=== PATIENT | female | born 1990 | race Caucasian/White ===

== ENCOUNTER 2020-08-20 11:10 | Emergency (ER) | payer OTHER, SELFPAY ==
[2020-08-20] VITALS (7 sets, daily range): BP systolic 103–143; BP diastolic 69–94; PULSE 84–157; RESP 20; TEMP 36.6; O2SAT 98–100
--- NOTE | ~2020-08-20 | US_ITS ---
US OB <=14 wk fetus w TV DATE: 08/20/2020 14:09 INDICATION: Vaginal bleeding with clots TECHNIQUE: Real-time imaging and Doppler analysis COMPARISON: None FINDINGS: Uterus measures 14.7 cm height, 5.9 cm AP dimension, 6.7 cm transverse dimension. Heterogeneous central endometrial echo complex measures up to 2.1 cm AP dimension. No intrauterine ge stational sac is identified. Right ovary 4.5 x 3.1 x 2.9 cm with complex cyst measuring 1.4 x 1.1 x 0.9 cm. Left ovary measures 3.6 x 1.6 x 1.5 cm. There is vascular flow to both kidneys. There is trace free fluid in the right adnexal area. IMPRESSION: Prominent heterogeneous central endometrial echo complex measures up to 2.1 cm, without i dentifiable gestational sac Reviewed, dictated and finalized at [facility]. Reviewed, dictated and finalized at [facility]. IMPRESSION: Prominent heterogeneous central endometrial echo complex measures u p to 2.1 cm, without identifiable gestational sac
--- NOTE | 2020-08-20 11:18 | ED.FEMALEGU ---
HPI - Female Genitourinary General Chief complaint: Vaginal Bleeding Stated complaint: possible miscarriage Time Seen by Provider: 08/20/20 11:16 Source: patient Mode of arrival: ambulatory Limitations: no limitations History of Present Illness HPI Narrative: This is a 29 year old , about 9 weeks by LMP that presents to the ER for vaginal bleeding x 3 days. Reports she had a positive test 4 days ago. Started with light bleeding the next day. Reports today she started having more heavy bleeding with clots. She recently moved, so does not have an CLERK MANAGER in the area. Denies fever, dysuria or pelvic cramping. Related Data Home Medications Medication Instructions Recorded Confirmed No Home Medications 08/20/20 08/20/20 Allergies Allergy/AdvReac Type Severity Reaction Status Date / Time No Known Allergies Allergy Verified 08/20/20 11:54 Review of Systems Review of Systems: Narrative: CONSTITUTIONAL: Denies fever GASTROINTESTINAL: Denies abdominal pain, nausea, vomiting GENITOURINARY: Denies dysuria All systems reviewed & are unremarkable except as noted in HPI and below PMFSH Past Medical History Medical History (Updated 08/20/20 @ 14:22 by Shana Bravo PA-C) No active medical problems Social History Social History (Updated 08/20/20 @ 11:33 by Shana Bravo PA-C) Substance use: never Gender identity (if verbalized by the patient): Female Exam Narrative: Exam Narrative: GENERAL: Well-appearing, well-nourished, and in no acute distress. HEAD: Normocephalic, atraumatic. EYES: EOMI. CHEST: Clear to auscultation. No respiratory distress. No wheezes rales or rhonchi HEART: Regular rate and rhythm. No murmur heard. Normal peripheral pulses. ABDOMEN: Soft, nontender, nondistended, normal active bowel sounds. EXTREMITIES: Normal range of motion. No edema. SKIN: Warm, dry, no rash. NEURO: No focal deficits. Alert and oriented x3. PSYCH: Normal mood and affect PELVIC: Large amount of blood with large blood clots present in the vaginal vault. Once cleared, blood is steadily oozing from the cervix Course Consultations Consultation #1: Spoke with Dr. Banuelos about patient and workup who will follow up in clinic. Would like repeat an hCG in 48 hours. Date: 08/20/20 Time: 14:36 Vital Signs Vital signs: Vital Signs Temperature 97.8 F 08/20/20 11:42 Pulse Rate 119 H 08/20/20 11:42 Respiratory Rate 20 08/20/20 11:42 Blood Pressure 143/89 H 08/20/20 11:42 Pulse Oximetry 100 08/20/20 11:42 Temperature 97.8 F 08/20/20 11:42 Pulse Rate 92 08/20/20 13:31 Respiratory Rate 20 08/20/20 13:31 Blood Pressure 103/77 08/20/20 13:31 Pulse Oximetry 100 08/20/20 13:31 MDM - Female Genitourinary MDM Narrative Medical decision making narrative: Patient presents to the emergency department for vaginal bleeding with recent positive test. She is afebrile and nontoxic-appearing. Orthostatic on arrival, hydrated with IV fluids with improvement. Her hemoglobin is 13. Patient does have bleeding on exam with large blood clots. Her quantitative beta-hCG is 11,323. She is O negative. Given dose of RhoGam in the ED. Obstetric ultrasound shows prominent heterogenous central endometrial echocomplex measuring up to 2.1 cm, no identifiable gestational sac. Right ovary has a small cyst. Normal vascular flow to the ovaries. Patient and family updated on case findings. Spoke with Dr. Banuelos about patient and workup who will follow up in clinic. Would like repeat an hCG in 48 hours. Patient is stable and felt appropriate for further outpatient evaluation. She was given warnings to return to the ER Lab Data Attestation: I reviewed the patient's lab results. Result diagrams: 08/20/20 11:40 Labs: Lab Results 08/20/20 08/20/20 08/20/20 Range/Units 11:40 11:40 11:40 WBC 7.6 (4.5-10.0) K/mm3 RBC 4.56 (4.2-5.4) M/mm3 Hgb 13.0 (12.0-15.0) g/d
[2020-08-20 11:57] LABS: Basophils Percent Auto 0.5 % (0.2-1.2); Eosinophils Absolute Auto 0.1 K/mm3 (0-0.3); Eosinophils Percent Auto 0.9 % (0-4.4); Hematocrit 39.2 % (37.0-47.0); Immature Granulocyte Absolute 0.02 K/mm3 (0.00-0.031); Immature Granulocyte Percent A 0.3 % (0-0.5); Lymphocytes Absolute Auto 1.43 K/mm3 (0.9-3.2); Lymphocytes Percent Auto 18.7 % (18.3-44.2); Mean Corpuscular HGB Conc 33.2 g/dl (32-36); Mean Corpuscular Hemoglobin 28.5 pg (26-34); Mean Platelet Volume 9.5 fl (7.4-10.4); Monocytes Absolute Auto 0.4 K/mm3 (0.1-0.6); Monocytes Percent Auto 5.1 % (2.6-8.5); Neutrophils Absolute Auto 5.7 K/mm3 (1.3-6.7); Neutrophils Percent Auto 74.5 % (45.5-73.1); Platelet Count Result 270 k/mm3 (150-375); Red Blood Count 4.56 M/mm3 (4.2-5.4); Red Cell Distribution Width 12.4 % (11.5-14.5); White Blood Count 7.6 K/mm3 (4.5-10.0)
[2020-08-20 12:08] LABS: INR 1.1; Prothrombin Time 14.6 Seconds (11.1-14.7)
[2020-08-20 12:09] LABS: Partial Thromboplastin Time 36.7 SECONDS (22.3-36.8)
[2020-08-20] MEDS: SODIUM CHLORIDE 0.9% IV 1,000 ML 999 ML IV CONT (12:19)
[2020-08-20] MEDS: RHO(D) IMMUNE GLOBULIN 300 MCG/2 ML SYRINGE IM (13:30)
[2020-08-20] MEDS: METHYLERGONOVINE MALEATE 0.2 MG/ML VIAL IM (14:45)
== END 2020-08-20 15:29 | disposition home or self-care (01) ==
PROVIDERS: Physician Assistant; Emergency Provider Emergency Medicine
DX: N93.9 Abnormal uterine and vaginal bleeding, unspecified (principal); O20.0 Threatened abortion
CPT/HCPCS: 36415; 76801; 76817; 81025; 84702; 85025; 85461; 85610; 85730; 90384; 96360; 96372; 99284; J2210; J2790; J7030

== ENCOUNTER 2020-08-23 14:54 | Outpatient (CLI) | payer OTHER, SELFPAY | END 2020-08-23 14:55 | disposition home or self-care (01) | LOC: ANHLAB 15:14 | PROVIDERS: Visit Provider Physician Assistant | DX: O20.0 Threatened abortion (principal); Z3A.09 9 weeks gestation of pregnancy | CPT/HCPCS: 36415; 84702 ==

== ENCOUNTER 2020-09-29 16:10 | Outpatient (RCR) | payer OTHER, SELFPAY ==
[2020-09-13 16:32] LABS: Beta HCG Quantitative 6.51 mIU/ML
[2020-09-29 17:09] LABS: Beta HCG Quantitative < 2.39 mIU/ML
== END 2020-12-12 23:59 | disposition home or self-care (01) ==
LOC: ANHLAB 16:10
PROVIDERS: Visit Provider Obstetrics & Gynecology
DX: O02.1 Missed abortion (principal); Z3A.00 Weeks of gestation of pregnancy not specified
CPT/HCPCS: 36415; 84702

== ENCOUNTER → 2021-06-27 09:09 | Outpatient (CLI) | payer BC, SELFPAY ==
[2021-06-27 11:58] LABS: SARS-CoV-2 RNA PCR Negative
== END ==
PROVIDERS: Visit Provider Obstetrics & Gynecology
DX: Z01.812 Encounter for preprocedural laboratory examination (principal); Z20.822 Contact with and (suspected) exposure to COVID-19
CPT/HCPCS: C9803; U0003; U0005

== ENCOUNTER 2021-06-29 01:40 | Day surgery (SDC) | payer BC, SELFPAY ==
[2021-06-27 08:40] VITALS: BMI 31.3
--- NOTE | 2021-06-27 08:48 | PC.NURSE ---
Report to the Outpatient Waiting Room, entrance under the green pavilion located off [facility], at time 0600 on date 06/29/21. OR Time: 0730. - You and your visitor will be asked a series of questions to screen for COVID 19 for your protection. - A mask is required within the hospital. One visitor will be allowed to accompany the patient into the hospital. Patients visitor will be instructed to remain with patient at all times or leave the building. We will allow the visitor to come back to the postoperative area when patient is ready. Preoperative COVID Testing Requirements: COVID TEST 06/27 AT 0915 No COVID Test needed if: (proof is required; if not received patient will have Rapid Test prior to entry) - Patient has received COVID Vaccine at least 14 days prior to procedure date or - Patient has positive COVID test result within last 90 days of surgery date. COVID Test needed if above criteria is not met If not COVID vaccinated a COVID test must be conducted within 72 hours of surgery and patient is asked to isolate self from time of testing until procedure. You will go to the [facility] for your COVID testing. The [facility] site is located at the corner of [address] [facility]. You will only be called if COVID results are positive and your surgeon may reschedule your elective surgery date. Patients may have clear liquids (water, carbonated beverages, clear teas, apple juice) until 3 hours prior to surgery with a maximum of 20 ounces. - No food from midnight until time of surgery Take the following medications with a SIP of water the morning of surgery: NONE Medications to discontinue per physician: N/A Date to take last dose: N/A Please no make-up, nail french, hairspray, perfume, deodorant, or body powder the day of surgery. No jewelry (including any body piercings) or valuables the day of surgery, leave them at home. Please take a shower or bath the night before, or the morning of, surgery with an antibacterial soap. Wear comfortable, loose fitting clothing. - Jewelry must be removed prior to entering the operating room. Rings and piercings that are not removed may be cut off. - The hospital will not accept responsibility for valuables. - Please leave all valuables, including medications, at home the day of surgery. If you are going home after surgery, a licensed subway train driver must drive you home. - NO public transportation without another adult. - We recommend that an adult stay with you for 24 hours following discharge. - We also recommend that you do not drive, make important decision, drink alcoholic beverages, or take any drugs that were not prescribed by your health care provider for at least 24 hours after your discharge time. Follow any additional instructions given to you from your surgeon. Telephone instructions given to LEONCIO GRAFF and asked if any additional questions and then verbalized understanding. Patient advised to call surgeon office or pre surgery nurse liaison [phone] if any additional questions.
[2021-06-29] MEDS: ACETAMINOPHEN 500 MG TABLET 1000 MG PO (06:36)
[2021-06-29] MEDS: LACTATED RINGERS 1,000 ML 30 ML IV CONT ×3 (06:45→09:25)
--- NOTE | 2021-06-29 07:01 | P.PNAN_ITS ---
Anes - Initial Pre Proc Eval Procedure: Operation Date: 06/29/21 07:30 Proposed Procedures p Suction Dilation and Curettage - Laura Shanks MD Date/Time: 06/29/21 07:01 Surgeon: Laura Shanks MD Pre Op Diagnosis: Missed Ab Patient Data Age: 30 Gender: F Height: 1.7 m Weight: 90.72 kg Allergies Allergy/AdvReac Type Severity Reaction Status Date / Time No Known Allergies Allergy Verified 06/28/21 11:33 Home Medications Medication Instructions Recorded Confirmed Type No Home Medications 06/27/21 06/27/21 History Patient hx anesthesia problems: none Family hx anesthesia problems: none Results Review: All pre-operative results and documents have been reviewed as part of the pre-operative evaluation. 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 Gender identity (if verbalized by the patient): Female Sexual Orientation (if Verbalized by the Patient): Straight or Heterosexual Spiritual care concerns: No Agree to blood products: No Anes - Eval Final PreProcedure Day of Procedure 06/29/21 07:01 Patient weight: obese Heart: regular rate and rhythm Lungs: clear to auscultation Airway: Mallampati scale class II Neurological: alert and oriented Last oral intake: >/= 8 hours ASA classification: II Emergent: no Anesthetic plan: proceed Anesthesia type and monitoring: general GIVS and standard monitoring Results Review: All pre-operative results and documents have been reviewed as part of the pre-operative evaluation. Informed Consent: The patient's anesthetic plan and its attendant risks and benefits were discussed with the patient/family/POA. Questions were solicited and answers provided to the satisfaction of the patient/family/POA.
[2021-06-29 07:04] LABS: Hematocrit 37.7 % (37.0-47.0); Hemoglobin 12.6 g/dL (12.0-15.0); Mean Corpuscular HGB Conc 33.4 g/dl (32-36); Mean Corpuscular Hemoglobin 28.4 pg (26-34); Mean Corpuscular Volume 85.1 fl (80-100); Mean Platelet Volume 9.2 fl (7.4-10.4); Platelet Count Result 247 k/mm3 (150-375); Red Blood Count 4.43 M/mm3 (4.2-5.4); Red Cell Distribution Width 15.1 % (11.5-14.5); White Blood Count 5.7 K/mm3 (4.5-10.0)
--- NOTE | 2021-06-29 07:08 | PM.IMHP ---
H&P: HPI History of Present Illness Date/Time: 06/29/21 07:01 Fany is a 30yo who is presenting for suction D&C. She was diagnosed with a missed on 06/26/21. She had presented for her anatomy US and the fetus was measuring 14wks without heart tones. She denies pain or bleeding. She was counseled on options and elected for suction D&C rather than misoprostol induction of labor. Her recently had a vasectomy; they do not plan to try for reversal. Chief Complaint: missed Review of Systems Constitutional: Constitutional: Denies fever(s) Cardiovascular: Cardiovascular: Denies chest pain, Denies palpitations and Denies dyspnea Gastrointestinal: Gastrointestinal: Denies nausea and Denies vomiting Genitourinary: Genitourinary: Denies abnormal vaginal bleeding, Denies pelvic pain and Denies vaginal discharge Neurologic: Denies dizziness and Denies headache(s) [facility] Past Medical History Medical History Miscarriage (~08/2020) No active medical problems Surgical History Surgical History S/P compartment syndrome decompression left leg Family History Family History Mother Myelofibrosis Father Non Hodgkin's lymphoma Social History Social History Smoking status: Never smoker Alcohol intake: never Substance use: never Substance use type: does not use Living arrangements: with family Additional living arrangements comments: spouse 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 Gender identity (if verbalized by the patient): Female Sexual Orientation (if Verbalized by the Patient): Straight or Heterosexual Spiritual care concerns: No Agree to blood products: No Meds Home Medications and Allergies Home Medications Medication Instructions Recorded Confirmed Type No Home Medications 06/27/21 06/27/21 History Allergies Allergy/AdvReac Type Severity Reaction Status Date / Time No Known Allergies Allergy Verified 06/28/21 11:33 Exam Const: General: cooperative, healthy appearing, comfortable and no acute distress Resp: Effort & Inspection: normal respiratory effort Cardio: Rate: regular rate GI: Inspection: non-distended GI Palp: No abdominal tenderness and Yes Soft to palpation : Other: deferred to OR Neuro: General: patient oriented x3 Psych: Appearance: grossly normal Affect: Sad affect present Attitude: cooperative Assessment and Plan Assessment and plan (1) Missed : Code(s): O02.1 - Missed Status: Acute Additional Plan - Pt was counseled on her options of suction D&C vs misoprostol induction of labor; she desires to proceed with suction dilation and curettage - Risks and benefits explained in detail - Doxycycline 200mg PO once post-op - Pt is rh negative and will need rhogam after procedure
--- NOTE | 2021-06-29 07:08 | WPDHPUPDATE1 ---
History and Physical Update Update Date/Time: 06/29/21 07:08 History and Physical has been reviewed, including an updated exam of the patient. There are NO changes in the patient's condition. Risks, benefits, and alternatives have been discussed and questions answered. Patient agrees to proceed with procedure.
[2021-06-29] MEDS: miSOPROStol 200 MCG TABLET 800 MCG VAGINAL (07:41)
[2021-06-29 08:00] VITALS: BP 142/62; PULSE 83; RESP 16; TEMP 36.6; O2SAT 100
[2021-06-29 08:30] VITALS: BP 112/69; PULSE 81; RESP 12; TEMP 36.2; O2SAT 100
[2021-06-29] MEDS: RHO(D) IMMUNE GLOBULIN 300 MCG/2 ML SYRINGE IM (08:45)
[2021-06-29 09:00] VITALS: BP 74/37; PULSE 58; RESP 16; O2SAT 100
--- NOTE | 2021-06-29 09:15 | W.PM.PROC2 ---
Procedure Note - Detailed Date of Procedure 06/29/21 Pre-op Diagnosis Missed Ab Post-op Diagnosis Same Procedure Performed suction dilation and curettage performed under ultrasound guidance Surgeon Laura Shanks MD Anesthesia MAC Indications Fany is a 30yo who is presenting for suction D&C. She was diagnosed with a missed on 06/26/21. She had presented for her anatomy US and the fetus was measuring 14wks without heart tones. She denies pain or bleeding. She was counseled on options and elected for suction D&C rather than misoprostol induction of labor. Her recently had a vasectomy; they do not plan to try for reversal. Findings 12wk size uterus; normal cervix closed. All products of conception removed at end of case with good hemostasis. PPH noted with 1,500cc of blood loss. Misoprostol 800mcg placed rectally at end of case. Description of Procedure Fany was taken to the operating room where she was placed under MAC sedation. Once comfortable she was prepped and draped in the usual sterile fashion the dorsal lithotomy position with her legs in low John stirrups. A time-out was performed. A bivalve speculum was placed within the vagina and the cervix was easily identified. The anterior lip of the cervix was grasped with a single-tooth tenaculum. The cervix was then serially dilated up to 12F dilation. A 14 was attempted to be used however the tenaculum site tore through the cervix. The tenaculum was replaced and decision was made to proceed with using a 12 Portuguese suction curettage. Two passes were made using the 12 and a small amount products were removed and murky fluid was then noted. The ultrasound was used and the fetus was still noted to be in utero. Using a large sharp curettage, some products of conception were removed. However most remained in utero. Therefore decision was made to use a ring forceps and portions of the fetus were removed. Ultrasound was once again performed and was noted that the calvarium was still in utero and was unable to be grasped by the ring forceps under ultrasound guidance.The tenaculum was then placed on the posterior lip of the cervix for better grasp, and the cervix was then dilated to 14. Using the 14, the products of conception were then removed and noted to be in the cervix. They were teased out of the cervix using ring forceps. Ultrasound was once performed and a small amount of products of conception were still in the uterus. Two more passes using the 14 curettage were performed and the remaining products of conception were removed. The endometrial stripe on ultrasound was found to be very thin. The cervix was clamping down but some bleeding was still noted. Misoprostol 800 mcg was placed rectally. All instruments were removed from the vagina and a bimanual massage was performed with good uterine tone. The cervix was once again examined and found to be hemostatic. An ultrasound was once again performed and the uterine lining was thin. Sponge, lap, and instrument counts were correct at the end the procedure. Patient was cleaned up and woken from anesthesia. She tolerated the procedure well and was taken to recovery in stable condition. She will be given doxycycline 200 mg p.o. once before discharge home. Estimated Blood Loss 1,500 Packing Yes Pathology Yes Complications No immediate complications Condition Stable Disposition Same day
[2021-06-29] MEDS: DOXYCYCLINE HYCLATE 100 MG TABLET 200 MG PO (09:23)
[2021-06-29 09:25] VITALS: BP 92/37; PULSE 70; RESP 16; O2SAT 100
[2021-06-29 09:55] VITALS: BP 98/57; PULSE 63; RESP 14; O2SAT 100
[2021-06-29 10:25] VITALS: BP 105/58; PULSE 70; RESP 14
== END 2021-06-29 10:40 | disposition home or self-care (01) ==
PROVIDERS: Visit Provider Obstetrics & Gynecology
PROC: (CPT 59820; principal; 2021-06-29 07:30)
DX: O02.1 Missed abortion (principal)
CPT/HCPCS: 59820; 36415; 84702; 85027; 85461; 88305; 90384; A9270; C9803; J2210; J2250; J2405; J2704; J2790; J3010; J7120; U0003; U0005

== ENCOUNTER 2022-05-07 11:37 | Emergency (ER) | payer BC, SELFPAY ==
[2022-05-07 12:04] VITALS: BP 123/71; PULSE 94; RESP 18; TEMP 36.7; O2SAT 100
--- NOTE | 2022-05-07 12:50 | ED.URI ---
HPI - URI/Sore Throat General Chief Complaint: Upper Respiratory Infection Stated Complaint: fever,sorethroat Time Seen by Provider: 05/07/22 11:57 Source: patient Mode of arrival: ambulatory Limitations: no limitations History of Present Illness HPI Narrative: 31-year-old female presents to [facility] complaints of sore throat, body aches, chills and fever for the past 3 days. Patient has been taking [id number] Tylenol with minimal relief. 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 Patient denies cough, congestion, runny nose, nausea, vomiting or diarrhea. Patient is a nonsmoker. Patient denies recent travel. MD elicited complaint: sore throat Onset (ago): day(s) (3) Able to tolerate fluids by mouth: Yes Exacerbating factors: swallowing Associated symptoms: fever and chills Treatments prior to arrival: acetaminophen Related Data Allergies Allergy/AdvReac Type Severity Reaction Status Date / Time No Known Allergies Allergy Verified 12/27/21 16:08 Review of Systems Constitutional: Constitutional: Reports chills, Denies fatigue and Reports fever(s) ENT: Denies vertigo, Denies dizziness, Denies epistaxis, Denies nasal congestion and Reports sore throat Cardiovascular: Cardiovascular: Denies chest pain Respiratory: Respiratory: Denies cough, Denies dyspnea and Denies wheezing Gastrointestinal: Gastrointestinal: Denies diarrhea, Denies nausea and Denies vomiting Integumentary/Breasts: Skin/Breast: Denies rash Neurologic: Denies vertigo, Denies dizziness, Denies syncope and Denies headache(s) [facility] Past Medical History Medical History Miscarriage (~08/2020) No active medical problems Surgical History Surgical History History of dilation and curettage 06/30 missed AB S/P compartment syndrome decompression left leg Family History Family History Mother Myelofibrosis Father Non Hodgkin's lymphoma Social History Social History Smoking status: Never smoker Alcohol intake: never Substance use: never Substance use type: does not use Living arrangements: with family Additional living arrangements comments: spouse Occupation/Education: occupation 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 There is no relevant family history pertinent to the presenting complaint. Exam Const: General: healthy appearing and no acute distress Nutritional Appearance: well nourished Orientation/consciousness: patient oriented x3 Limitations: no limitations HENMT: Head: normal to inspection Ears: external ears normal and TM's normal bilaterally Face/Nose/Sinus: Normal external nose present Face and sinus: normal facial exam Mouth: Yes Normal oral and palatal mucosa present, Yes lip normal and Yes moist mucous membranes Teeth and gingiva: dentition normal Throat: uvula midline Other: 2+ swelling, erythema and exudate noted to bilateral tonsils. Uvula is midline there is no peritonsillar abscess noted. Eyes: Conjunctivae: conjunctivae normal Neck: Neck: normal visual inspection Resp: Effort & Inspection: normal respiratory effort, not labored and not tachypneic Auscultation: clear to auscultation bilaterally, no crackles, no rales, no rhonchi and no wheezes Cardio: Rate: regular rate Rhythm: regular rhythm Heart sounds: no murmurs Skin: General skin exam: normal color Rashes: no rashes Neuro: Speech: normal speech P
== END 2022-05-07 13:01 | disposition home or self-care (01) ==
PROVIDERS: Emergency Provider Nurse Practitioner Family; PCP Nurse Practitioner Family
DX: J02.0 Streptococcal pharyngitis (principal)
CPT/HCPCS: 87880; 99213; G0463

== ENCOUNTER 2023-02-17 13:54 | Emergency (ER) | payer BC, SELFPAY ==
[2023-02-17 14:47] VITALS: BP 126/76; PULSE 68; RESP 18; TEMP 36.3; O2SAT 100
--- NOTE | 2023-02-17 15:16 | ED.URI ---
HPI - URI/Sore Throat General Chief Complaint: Upper Respiratory Infection Stated Complaint: cough Time Seen by Provider: 02/17/23 15:16 Source: patient Mode of arrival: ambulatory Limitations: no limitations History of Present Illness HPI Narrative: 32-year-old female presents with complaint of cough for 1 month. Reports over the last 3 days she has had a low-grade fever. Is concerned for pneumonia. Denies chest pain and shortness of breath. Taking [id number] medications to treat her cough without relief. All systems reviewed and negative except as noted above. Related Data Allergies Allergy/AdvReac Type Severity Reaction Status Date / Time No Known Allergies Allergy Verified 12/27/21 16:08 Review of Systems Review of Systems: CONSTITUTIONAL: reports fever. Denies chills, or sweats. EYES: Denies visual changes, redness, or discharge. ENT: Denies rhinorrhea, congestion, sore throat, or otalgia. CARDIOVASCULAR: Denies chest pain, palpitations, or edema. RESPIRATORY: Reports cough. Denies dyspnea. GASTROINTESTINAL: Denies abdominal pain, nausea, vomiting, or diarrhea. GENITOURINARY: Denies dysuria or hematuria. SKIN: Denies rash or itching. MUSCULOSKELETAL: Denies back pain, joint pain, or myalgia. NEUROLOGIC: Denies headache, numbness, or weakness. PSYCHIATRIC: Denies anxiety or depression. All other systems reviewed are negative, except as documented in HPI. FOR[facility], LAT[facility] Past Medical History Medical History Miscarriage (~08/2020) No active medical problems Surgical History Surgical History History of dilation and curettage 06/30 missed AB S/P compartment syndrome decompression left leg Family History Family History Mother Myelofibrosis Father Non Hodgkin's lymphoma Social History Social History Smoking status: Never smoker Alcohol intake: never Substance use: never Substance use type: does not use Living arrangements: with family Additional living arrangements comments: spouse Occupation/Education: occupation 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 There is no relevant family history pertinent to the presenting complaint. Exam Narrative: GENERAL: This is a well-nourished, well-developed patient, in no apparent distress. HEAD: normocephalic, atraumatic. EYES: PERRL. Sclera clear/white. Vision is grossly intact. EARS: External ears normal, auditory canals clear and without drainage, TMs normal without perforation. Hearing grossly intact. NOSE: External nose normal with no obvious nasal discharge, nares without redness, no rhinorrhea. THROAT: Mucous membranes moist, posterior pharynx clear. NECK: Neck supple, non-tender without lymphadenopathy, masses or thyromegaly. CARDIOVASCULAR: Regular rate and rhythm without murmurs, gallops, or rubs. RESPIRATORY: decreased lung sounds to lower lung guevara otherwise clear to auscultation. Breath sounds equal bilaterally. No wheezes, rales, or rhonchi. SKIN: warm, Dry, intact with no suspicious lesions or rash, good texture and turgor. NEURO: awake, alert, and oriented to person, place and time. There were no obvious focal neurologic abnormalities. EXTREMITIES: No joint tenderness, effusion, or edema noted. Course Course Level of Care: Express Care Visit Vital Signs Vital signs: Vital Signs Oxygen Delivery Room Air 02/17/23 14:45 Temperature 36.3 C L 02/17/23
== END 2023-02-17 15:35 | disposition home or self-care (01) ==
PROVIDERS: Emergency Provider Nurse Practitioner Family; PCP Nurse Practitioner Family
DX: J18.9 Pneumonia, unspecified organism (principal)
CPT/HCPCS: 99213; G0463